=== PATIENT | female | born 1960 | race Caucasian/White ===

== ENCOUNTER 2018-08-05 20:43 | Emergency (ER) | payer OTHER ==
[~2018-08-05] VITALS: Ht 152.4 cm; Wt 55.8 kg
[~2018-08-05 20:43] MED LIST: ASPIRIN325; BENTYL20 MG PO; CENTRUM SILVER1 EAC4 PO; CIPROFLOXACIN500 M1 PO; FLONASE 0.05%50 MCG NS; HYDROCODON-ACE1 EAC8 PO; NEXIUM 40 MG CA40 M1 PO; NIACIN; NOHOMEMEDICATIONS; PERCOCET 5-3251 EACH PO; PROZAC20 MG PO; SINGULAIR 10 MG10 M1 PO; ULTRAM 50MG TAB50 MG PO; XYZAL5 MG PO
[2018-08-05] MEDS ORDERED: PRILOSEC 20 MG20 MG PO (20:52)
[2018-08-05] MEDS ORDERED: FORMULA 303 (20:53)
[2018-08-05] MEDS ORDERED: BENADRYL25 MG PO (21:36)
[2018-08-05] MEDS ORDERED: PREDNISONE 20 M20 MG PO (21:36)
[2018-08-05] MEDS ORDERED: PEPCID20 MG PO (21:36)
[2018-08-05 21:43] VITALS: BP 153/75
== END 2018-08-05 21:46 | disposition home or self-care (01) ==
LOC: M.ERS 20:43
DX: L53.9 Erythematous condition, unspecified (principal); R60.9 Edema, unspecified; T48.295A Adverse effect of other drugs acting on muscles, initial encounter; Z86.711 Personal history of pulmonary embolism; Z90.49 Acquired absence of other specified parts of digestive tract; Z98.890 Other specified postprocedural states; Y92.89 Other specified places as the place of occurrence of the external cause

== ENCOUNTER 2020-11-26 02:24 | Inpatient (IN) | payer OTHER ==
[2020-11-26] VITALS (7 sets, daily range): BP systolic 98–144; BP diastolic 46–64
[~2020-11-26] VITALS: Ht 147.3 cm; Wt 55.3 kg
[~2020-11-26 02:24] MED LIST changes: +BENADRYL25 MG PO; +FORMULA 303; +PEPCID20 MG PO; +PREDNISONE 20 M20 MG PO; +PRILOSEC 20 MG20 MG PO
[2020-11-26] MEDS ORDERED: FLUOXETINE (02:48)
[2020-11-26] MEDS ORDERED: PRAVASTATIN (02:48)
[2020-11-26 03:02] LABS: URINE BILIRUBIN NEGATIVE (Negative); URINE BLOOD TRACE (Negative); URINE CLARITY CLEAR; URINE COLOR STRAW; URINE GLUCOSE-RANDOM NEGATIVE (Negative); URINE KETONES NEGATIVE (Negative); URINE LEUKOCYTES-REFLEX TRACE (Negative); URINE NITRITE-REFLEX NEGATIVE (Negative); URINE PROTEIN NEGATIVE (Negative); URINE SPECIFIC GRAVITY <= 1.005 (1.005-1.030); URINE UROBILINOGEN 0.2 E.U./dl (0.2-1.0)
[2020-11-26 03:18] LABS: CASTS None Seen /LPF (None Seen); SQUAMOUS 0-3 Few /LPF (0-3)
[2020-11-26 03:19] LABS: URINE RBC 0-2 Rare /HPF (0-2); URINE WBC-REFLEX 0-5 Rare /HPF (0-5)
[2020-11-26 03:20] LABS: BACTERIA-REFLEX 1-9 Few /HPF (None Seen); CRYSTALS None Seen /LPF (None Seen)
[2020-11-26 03:24] LABS: ABSOLUTE BASOPHILS 0.1 thou/uL (0.0-0.2); ABSOLUTE EOSINOPHILS 0.8 thou/uL (0.0-0.7); ABSOLUTE MONOCYTES 0.7 thou/uL (0.0-1.2); ABSOLUTE NEUTROPHILS 8.3 thou/uL (1.6-8.1); BASOPHILS 0.4 %; EOSINOPHILS 5.9 %; HEMATOCRIT 43.4 % (37.0-47.0); HEMOGLOBIN 14.4 gm/dL (12.0-15.0); LYMPHOCYTES 28.6 %; MCH 30.5 pg (26.0-34.0); MCHC 33.2 g/dL (28.0-37.0); MCV 91.7 fL (80.0-100.0); MONOCYTES 5.2 %; MPV 7.5 fl. (7.2-11.1); NUCLEATED RBCS 0 /100WBC; PLATELET COUNT* 283 thou/uL (150-400); POLYS 59.9 %; RBC 4.73 mil/uL (4.20-5.00); WBC 13.9 thou/uL (4.0-11.0)
[2020-11-26 03:44] LABS: CALCIUM 9.5 mg/dL (8.5-10.1); CREATININE 0.8 mg/dL (0.6-1.3); POTASSIUM 3.7 mmol/L (3.5-5.1)
[2020-11-26 03:48] LABS: TOTAL BILIRUBIN 0.5 mg/dL (<0.1-1.0); TOTAL PROTEIN 8.5 g/dL (6.4-8.2)
[2020-11-26 05:41] LABS: INR 0.9; PROTIME 9.7 Seconds (9.20-11.50)
[2020-11-26 13:46] LABS: MAGNESIUM 2.2 mg/dL (1.8-2.4)
--- NOTE | 2020-11-26 15:24 | 2DMMODE ---
[place] [address] 2 D/M-MODE ECHOCARDIOGRAM Name: ANAMARIA VINES Room: [address] IN [facility]#: [id number] Admission: 11/26/20 Attend Phys: Rosemary Calvin, Discharge: Date of : 58 Date of Service: 11/26/20 1524 Report #: [id number] THIS REPORT FOR: cc: Keyanna Perdomo,Keyanna Diana,Augusto Buckley MD [facility] ~ APPROVED REPORT Study performed: 11/26/2020 14:45:12 EXAM: Comprehensive 2D, Doppler, and color-flow Echocardiogram Patient Location: In-Patient Room #: [facility] Status: routine BSA: 1.48 HR: 68 bpm BP: 114/63 mmHg Rhythm: NSR Other Information Study Quality: Good Indications Pulmonary Embolism 2D Dimensions IVSd: 8.05 (7-11mm) LVOT Diam: 18.91 (18-24mm) LVDd: 40.25 mm PWd: 8.94 (7-11mm) Ascending Ao: 25.87 (22-36mm) LVDs: 20.98 (25-40mm) Aortic Root: 23.73 mm Volumes Left Atrial Volume (Systole) LA ESV Index: 19.50 mL/m2 Aortic Valve AoV Peak Kameron.: 1.48 m/s AO Peak Gr.: 8.75 mmHg LVOT Max P.17 mmHg AO Mean Gr.: 4.50 mmHg LVOT Mean P.94 mmHg LVOT Max V: 1.02 m/s AO V2 VTI: 31.41 cm LVOT Mean V: 0.63 m/s СВЕТЛАНА (VTI): 2.00 cm2 LVOT V1 VTI: 22.33 [place] [address] 2 D/M-MODE ECHOCARDIOGRAM Name: ANAMARIA VINES Room: [address] IN ..#: [id number] Admission: 11/26/20 Attend Phys: Rosemary Calvin, Discharge: Date of : 58 Date of Service: 11/26/20 1524 Report #: [id number] Mitral Valve E/A Ratio: 1.24 MV Decel. Time: 188.55 ms MV E Max Kameron.: 0.97 m/s MV PHT: 54.68 ms MVA (PHT): 4.02 cm2 TDI E/Lateral E': 9.70 E/Medial E': 8.82 Medial E' Kameron.: 0.11 m/s Lateral E' Kameron.: 0.10 m/s Pulmonary Valve PV Peak Kameron.: 0.85 m/s PV Peak Gr.: 2.87 mmHg Left Ventricle The left ventricle is normal size. There is normal LV segmental wall motion. There is normal left ventricular wall thickness. Left ventricular systolic function is normal. The left ventricular ejection fraction is within the normal range. LVEF is 60-65%. The left ventricular diastolic function is normal. Right Ventricle The right ventricle is normal size. The right ventricular systolic function is normal. Atria The left atrium size is normal. The right atrium size is normal. Aortic Valve The aortic valve is normal in structure. No aortic regurgitation is present. There is no aortic valvular stenosis. Mitral Valve The mitral valve is normal in structure. Trace mitral regurgitation. No evidence of mitral valve stenosis. Tricuspid Valve The tricuspid valve is normal in structure. Unable to assess PA pressure. Trace tricuspid regurgitation. Pulmonic Valve The pulmonary valve is normal in structure. There is no pulmonic [place] [address] 2 D/M-MODE ECHOCARDIOGRAM Name: ANAMARIA VINES Room: [address] IN [facility]#: [id number] Admission: 11/26/20 Attend Phys: Rosemary Calvin, Discharge: Date of : 58 Date of Service: 11/26/20 1524 Report #: [id number] Great Vessels The aortic root is normal in size. IVC is normal in size and collapses >50% with inspiration. Pericardium There is no pericardial effusion. <Conclusion> Left ventricular systolic function is normal. The left ventricular ejection fraction is within the normal range. <ELECTRONICALLY SIGNED> By: Augusto Pastor MD, FACC 11/26/20 1524 1524 1524 Augusto Pastor MD, FACC /INF
[2020-11-27 04:21] VITALS: BP 112/58
[2020-11-27 05:35] LABS: ABSOLUTE EOSINOPHILS 0.4 thou/uL (0.0-0.7); ABSOLUTE LYMPHOCYTES 3.9 thou/uL (0.8-5.3); ABSOLUTE MONOCYTES 0.5 thou/uL (0.0-1.2); ABSOLUTE NEUTROPHILS 5.2 thou/uL (1.6-8.1); BASOPHILS 0.5 %; EOSINOPHILS 4.2 %; HEMATOCRIT 35.5 % (37.0-47.0); LYMPHOCYTES 38.7 %; MCH 30.1 pg (26.0-34.0); MCHC 32.9 g/dL (28.0-37.0); MCV 91.4 fL (80.0-100.0); MPV 8.3 fl. (7.2-11.1); NUCLEATED RBCS 0 /100WBC; PLATELET COUNT* 227 thou/uL (150-400); POLYS 51.6 %; RBC 3.88 mil/uL (4.20-5.00); WBC 10.1 thou/uL (4.0-11.0)
[2020-11-27 05:38] LABS: HEMOGLOBIN 11.7 gm/dL (12.0-15.0)
[2020-11-27 05:48] LABS: ALBUMIN 2.9 g/dL (3.4-5.0); CALCIUM 8.7 mg/dL (8.5-10.1); CREATININE 0.7 mg/dL (0.6-1.3); POTASSIUM 3.6 mmol/L (3.5-5.1); TOTAL BILIRUBIN 0.7 mg/dL (<0.1-1.0); TOTAL PROTEIN 6.7 g/dL (6.4-8.2)
[2020-11-27 09:00] VITALS: BP 91/50
[2020-11-27 12:00] VITALS: BP 107/54
[2020-11-27 16:13] VITALS: BP 98/46
--- NOTE | 2020-11-27 16:36 | CON ---
[address] [address] CONSULTATION Name: ANAMARIA VINES Room: [address] IN [facility]#: [id number] Admission: 11/26/20 Attend Phys: Rosemary Calvin MD Discharge: Date of : 58 Report #: [id number] THIS REPORT FOR: cc: Keyanna Perdomo Anna S. DO ~ Calos James MD DATE OF SERVICE: 11/26/2020 CONSULT REQUESTED BY: Americo Gill DO. INDICATION FOR CONSULTATION: Acute pulmonary emboli. HISTORY OF PRESENT ILLNESS: This is a 60-year-old female. She has a previous history of an episode of pulmonary emboli, which appears to be spontaneous in 2007. The patient at that time was taking oral contraceptive pills and this was attributed to oral contraceptives. The patient was on anticoagulation for a while and has subsequently been off and she is a lifetime nonsmoker and does not have a history of any other cardiac or respiratory disease. The patient says that she had a blood drawn from her left arm and is subsequently describing symptoms, which would be consistent with superficial thrombophlebitis. In the left arm, she states that there was erythema as well as swelling at the site from where she had a blood drawn. She says that there was some pain in the left upper arm and shoulder as well at that time. She says that this subsequently resolved. The patient says that she subsequently has had an EGD on 11/02/2020 also. The patient says the symptoms in the left arm have now subsided, however, she has been having chest pain on the right side. She says that she may have had some discomfort on the right side for the last couple of days, but really she only felt it yesterday. She describes this as pain, which was associated with respiration and coughing; however, she does not have any local tenderness and there are no local skin changes. She did have some mild increase in shortness of breath at that time. She has not had any significant cough. There are no upper respiratory complaints. There is no swelling of lower extremities or calf pain. Initially, there was also a question as to whether some of this pain could be of abdominal origin. The patient, however, says that while she has had some vague abdominal discomfort for a long period of time, this has not changed recently and there is no increase in this. She describes no urinary complaints. No nausea, vomiting or diarrhea. She has had some neck pain though. REVIEW OF SYSTEMS: The patient's review of systems for 12 points is negative [place] [address] CONSULTATION Name: JACKELINANAMARIA FOWLER Room: [address] IN [facility]#: [id number] Admission: 11/26/20 Attend Phys: Rosemary Calvin MD Discharge: Date of : 58 Report #: [id number] PAST MEDICAL HISTORY: Acute pulmonary emboli in 2008, the patient was on an oral contraceptive pill at that time, x 2, seasonal allergic rhinitis/conjunctivitis, D and C, tonsillectomy, cholecystectomy, was noted to be H. pylori positive in 2019, recent EGD, I do not have the report available at this time. SOCIAL HISTORY: Lifetime nonsmoker. No known history of heavy alcohol use or illegal drug use. FAMILY HISTORY: Prostate cancer, diabetes, osteoarthritis. ALLERGIES: No known drug allergies. CURRENT MEDICATIONS: List in [facility] reviewed. HOME MEDICATIONS: The list in the ER records is reviewed. PHYSICAL EXAMINATION: GENERAL: She is alert, awake and oriented, does not appear to be in any distress. VITAL SIGNS: Has a pulse of 71 and a blood pressure of 114/63. She is saturating 97% on 1 liter nasal cannula. Respiratory rate has been from 12-18. She is afebrile with a temperature of 36.8. HEENT: Head is normocephalic and atraumatic. Pupils are equal and reactive. There is no throat erythema. NECK: Does not show raised JVP, asymmetry, mass or lymph nodes. CHEST: Symmetrical expansion on inspection and palpation. On auscultation, chest is essentially clear. She does complain of pain in the right lower chest. There are no skin changes or tenderness over the area where she is complaining of pain. HEART: Regular. There is no murmur. ABDOMEN: Soft and nontender. EXTREMITIES: I examined her left arm carefully up to her shoulder. There is a minor bruise seen in the upper arm towards the medial aspect, which is fairly small in size, perhaps of 1 cm or so. I do not see any other abnormalities. There is no tenderness over her arm or left shoulder. Lower extremities show no edema, no calf tenderness. SKIN: Dry and intact. NEUROLOGICAL: Moves all extremities bilaterally equally and spontaneously with no focal deficit identified. I reviewed both the CT chest films as well as report. These are discussed below with assessment and plan. Abdomen and pelvis CT report in [facility] reviewed. Venous Dopplers of lower extremities are negative. I have ordered venous [address] [address] CONSULTATION Name: ANAMARIA VINES Room: [address] IN [facility].#: [id number] Admission: 11/26/20 Attend Phys: Rosemary Calvin MD Discharge: Date of : 58 Report #: [id number] Dopplers of the left upper extremity, which are pending. Lab work is in [employer] and this is reviewed. ASSESSMENT AND PLAN: 1. Acute pulmonary embolism. I agree with IV heparin. I also agree with Xarelto as ordered by the primary service. Duration of anticoagulation remains to be determined at this time. I will do a 2D echo. As below, we will also do venous Dopplers of the left upper extremity and we will obtain a hypercoagulability profile and then comment on this further. 2. Recent thrombophlebitis, left arm. The patient currently has IV access in the left arm. I have recommended that we should go ahead and do venous Dopplers of the left arm and until these are back, switch IV access to the right side and also do blood draws and blood pressure checks only on the right side, but hopefully we will be able to get venous Dopplers of the right upper extremity done soon. 3. Pulmonary infarct/pulmonary infiltrate. Certainly, a pulmonary infarct can give this picture. There are pulmonary emboli present in the location from which this part of the lung will be fed. The size of the infiltrate, however, appears to be larger than what I would expect in a patient with otherwise no known history of cardiac or respiratory disease with the size of the pulmonary emboli on the CT. Therefore, I feel that the possibility of superimposed infection needs to be considered and this is the reason to give her azithromycin. Thanks for this consultation. <ELECTRONICALLY SIGNED> By: Calos James MD 11/27/20 1636 [id number] 1658Achelsi James MD /nt
[2020-11-27 20:20] VITALS: BP 118/65
[2020-11-28 02:27] VITALS: BP 115/56
[2020-11-28 04:55] LABS: ABSOLUTE BASOPHILS 0.1 thou/uL (0.0-0.2); ABSOLUTE EOSINOPHILS 0.6 thou/uL (0.0-0.7); ABSOLUTE LYMPHOCYTES 4.1 thou/uL (0.8-5.3); ABSOLUTE MONOCYTES 0.4 thou/uL (0.0-1.2); ABSOLUTE NEUTROPHILS 3.6 thou/uL (1.6-8.1); BASOPHILS 0.8 %; EOSINOPHILS 7.4 %; HEMOGLOBIN 12.8 gm/dL (12.0-15.0); LYMPHOCYTES 46.7 %; MCH 30.7 pg (26.0-34.0); MCHC 33.6 g/dL (28.0-37.0); MCV 91.3 fL (80.0-100.0); MONOCYTES 4.5 %; MPV 8.3 fl. (7.2-11.1); NUCLEATED RBCS 0 /100WBC; PLATELET COUNT* 260 thou/uL (150-400); POLYS 40.6 %; RBC 4.16 mil/uL (4.20-5.00); RDW-CV 13.9 % (10.5-14.5); WBC 8.8 thou/uL (4.0-11.0)
[2020-11-28 05:34] LABS: CALCIUM 9.2 mg/dL (8.5-10.1); CREATININE 0.8 mg/dL (0.6-1.3); POTASSIUM 3.8 mmol/L (3.5-5.1)
[2020-11-28 05:55] VITALS: BP 108/61
[2020-11-28 08:00] VITALS: BP 100/42
[2020-11-28] MEDS ORDERED: XARELTO20 MG PO (09:55)
[2020-11-28] MEDS ORDERED: AZITHROMYCIN 2250 MG PO (09:55)
[2020-11-28] MEDS ORDERED: XARELTO15 MG PO (09:55)
[2020-11-28 12:00] VITALS: BP 110/64
[2020-11-28 12:10] VITALS: BP 100/42
== END 2020-11-28 15:00 | disposition home or self-care (01) | DRG 176 ==
LOC: M.ERS 02:24 → M.TBA-ER 05:56 → M.2W 05:56
PROVIDERS: Emergency Medicine; Internal Medicine; Internal Medicine Critical Care Medicine; ADMIT Internal Medicine; ATTEND Internal Medicine
DX: I26.99 Other pulmonary embolism without acute cor pulmonale (principal); N39.0 Urinary tract infection, site not specified; R65.10 Systemic inflammatory response syndrome (SIRS) of non-infectious origin without acute organ dysfunction; D68.59 Other primary thrombophilia; I82.612 Acute embolism and thrombosis of superficial veins of left upper extremity; R10.9 Unspecified abdominal pain; E78.5 Hyperlipidemia, unspecified; F32.9 Major depressive disorder, single episode, unspecified; Z20.822 Contact with and (suspected) exposure to COVID-19; Z90.49 Acquired absence of other specified parts of digestive tract; Z98.891 History of uterine scar from previous surgery

== ENCOUNTER → 2021-02-26 | Outpatient (CLI) | payer OTHER ==
[~2021-02-26] MED LIST changes: +AZITHROMYCIN 2250 MG PO; +FLUOXETINE; +PRAVASTATIN; +XARELTO15 MG PO; +XARELTO20 MG PO
[2021-02-26 07:24] LABS: CREATININE 0.7 mg/dL (0.6-1.3)
== END ==
LOC: M.LAB 02-13 13:35
PROVIDERS: ATTEND Internal Medicine Critical Care Medicine
DX: I26.99 Other pulmonary embolism without acute cor pulmonale (principal); R91.8 Other nonspecific abnormal finding of lung field; I80.8 Phlebitis and thrombophlebitis of other sites; R06.02 Shortness of breath

== ENCOUNTER → 2021-05-16 | Outpatient (CLI) | payer OTHER | LOC: M.CT 07:37 | PROVIDERS: ATTEND Internal Medicine Critical Care Medicine | DX: J98.4 Other disorders of lung (principal) ==